=== PATIENT | female | born 1940 | race Caucasian/White ===

== ENCOUNTER 2017-03-21 10:54 | Inpatient (IN) | payer MEDICARE, BC ==
[~2017-03-21] VITALS: Ht 157.5 cm; Wt 74.6 kg
--- NOTE | ~2017-03-21 | DS ---
Unit #: [id number] #: [id number] Patient: ARSLAN DOMINGUEZ [id number] [address] [place], [place] [address] [id number] I MR#: [id number] NAME: ARSLAN DOMINGUEZ. ROOM: [facility] Age: 76 Sex: F Admission Date: 03/21/2017 : 1940 Discharge Date: 03/26/2017 Attending Physician: Ervin Mancera M.D. Primary Care Physician: Gracie Taveras M.D. DISCHARGE SUMMARY DISCHARGE DIAGNOSES 1. Acute bronchitis. 2. Paroxysmal atrial fibrillation, now normal sinus rhythm. 3. Left ventricular ejection fraction 50%-55%. 4. Abnormal chest CT, status post bronchoscopy on 03/26/2017. 5. Nonsmoker. DISCHARGE MEDICATIONS 1. Doxycycline 100 mg p.o. times 5 days. 2. Xarelto 20 mg p.o. daily. Start tomorrow. 3. Alendronate sodium 7 mg once weekly. 4. Singulair 10 mg p.o. daily. 5. Lipitor 40 mg p.o. at bedtime 6. Cardizem 60 mg p.o. b.i.d. 7. Telmisartan/hydrochlorothiazide 80/25 mg 1 p.o. daily. 8. Combivent MDI q.6 h. 9. Symbicort 160/4.5 one puff b.i.d. 10. Prednisone 40 mg p.o. daily times 4 days. 11. Tylenol 650 mg p.o. q.6 h. p.r.n. mild pain. HOSPITAL COURSE The patient is a 76-year-old female with a history of hypertension, hyperlipidemia, chronic obstructive pulmonary disease and bronchiectasis, status post right lower lobectomy in the 1960s, and frequent pneumonia. She presented to the emergency room with weakness and cough and increased shortness of breath from her baseline. She reported productive cough for several days. In the emergency room she was found to be in atrial fibrillation with a ventricular rate in the 190s. She was given a Cardizem 20 mg IV bolus, which converted her to sinus rhythm with a rate of 70s to 80s. She denied chest pain, but did report some soreness from coughing. An EKG and enzymes were negative for ischemia. She was started on Lovenox and Cardizem p.o. CT of the chest was done, which was negative for pulmonary embolism, but did show wall thickening with irregularity of the right mainstem bronchus. Pulmonary was consulted. On 03/22/2017 she underwent a dobutamine stress test which was negative for ischemia. An echocardiogram showed left ventricular ejection fraction of 50%-55%. Her anticoagulation was held on 03/25/2017 in anticipation of a bronchoscopy. On 03/26/2017 she underwent a bronchoscopy for abnormal CT of the chest. Bronchoscopy showed mucus in the airways with some chronic bronchitis, but no endobronchial lesions. She post bronch was stable and maintained normal sinus rhythm. She is currently ready for discharge home. She will follow up with Dr. Mancera in four to six weeks and Dr. Berumen in two weeks. We will restart her Xarelto tomorrow. The patient was given a prescription for 30 days free of Xarelto. She was also given a Unit #: [id number] #: [id number] Patient: ARSLAN DOMINGUEZ prescription with refill for Xarelto. It is unclear the cost to the patient. This needs to be addressed at the patient's follow-up office visit in one month. This was discussed in detail with the patient. PHYSICAL EXAMINATION VITALS: Temperature 98.2, heart rate 68, respiratory rate 16, blood pressure 137/59. GENERAL: Alert and oriented times three. The patient is a 76-year-old female in no acute distress. CARDIOVASCULAR: S1 and S2. Regular rate and rhythm. PULMONARY: Lungs clear. Decreased in the bases. Unlabored respirations. ABDOMEN: Nontender and nondistended. Positive bowel sounds. EXTREMITIES: No edema. Pulses palpable. DIAGNOSTIC DATA LABORATORY: Sodium 139, potassium 4.2, chloride 107, BUN 43, creatinine 0.9, glucose 143, hemoglobin 10, hematocrit 30.9, white blood cell count 22, platelets 323, magnesium 2.3. TSH was 3.45. Blood cultures on 03/21/2017 were no growth after 5 days. Sputum culture was no growth after 24 hours. Urine culture was no growth after 48 hours. CARDIOVASCULAR: EKG normal sinus rhythm with ventricular rate of 68. DISPOSITION Discharge home. FOLLOWUP 1. Follow up with Dr. Mancera in four to six weeks. 2. Follow up with Dr. Berumen in two weeks. DISCHARGE INSTRUCTIONS 1. Resume Xarelto 20 mg daily starting tomorrow. 2. Resume home medications per medication reconciliation sheet. Prescriptions given as needed. Dictated by... Ophelia Hope APRN for Michelle Kemp M.D. PURVI/sacha TD: 03/29/2017 13:22 JOB #: [id number] DISCHARGE SUMMARY Page 1 of 1 X X DISCHARGE SUMMARY
--- NOTE | ~2017-03-21 | CR72 ---
[facility] A Service of [facility] & [facility] RADIOLOGY TEXT RESULTS PATIENT: ARSLAN DOMINGUEZ LOCATION: [facility] 550-01 : 41 UNIT #: [id number] AGE: [address]: Ervin Mancera MD SEX: F ORDER DR: [id number] [facility] [address] [facility]. [place], [place] [address] [id number] I MR#: [id number] Acc #: [id number] NAME: ARSLAN DOMINGUEZ. : 1940 SEX: F STUDY DATE/TIME: 03/21/2017 1129 UNIT: [facility] ROOM: [facility] STUDY DESCRIPTION: CR Chest Single View Portable Attending Physician: Ervin Mancera M.D. Ordering Physician: Reymundo Valentin M.D. Primary Care Physician: Gracie Taveras M.D. MEDICAL IMAGING REPORT This report is preliminary unless electronic signature is present EXAM Chest portable 03/21/2017 1129 hours HISTORY 76-year-old woman with shortness of air, cough, hypertension, congestion and pneumonia today. COMPARISON None. FINDINGS Single upright portable chest demonstrates low lung volumes. Heart size is at the upper limits of normal with mildly tortuous aorta. The lung volumes are low but the pulmonary vascularity is normal. The lungs are clear. IMPRESSION Slightly low lung volumes with no acute pulmonary or pleural findings. Heart size at the upper limits of normal with mildly tortuous aorta. There is no pleural effusion or pneumothorax. Dictated by... Samantha Quinones M.D. THIS IS AN ELECTRONICALLY VERIFIED REPORT Samantha Quinones M.D. at 03/22/2017 8:53 AM Mei TD: 03/21/2017 17:58 JOB #: [id number] MEDICAL IMAGING REPORT Page 1 of 1 COPY
--- NOTE | ~2017-03-21 | CR63 ---
[facility] A Service of [facility] & [facility] RADIOLOGY TEXT RESULTS PATIENT: ARSLAN DOMINGUEZ LOCATION: [facility] 550-01 : 41 UNIT #: [id number] AGE: [address]: Ervin Mancera MD SEX: F ORDER DR: [id number] [facility] [address] [facility]. [place], [place] [address] [id number] I MR#: [id number] #: [id number] NAME: ARSLAN DOMINGUEZ. : 1940 SEX: F STUDY DATE/TIME: 03/21/2017 15:43 UNIT: [facility] ROOM: [facility] STUDY DESCRIPTION: CR Chest 2 View Attending Physician: Ervin Mancera M.D. Ordering Physician: Ervin Mancera M.D. Primary Care Physician: Gracie Taveras M.D. MEDICAL IMAGING REPORT This report is preliminary unless electronic signature is present EXAM PA and lateral chest radiograph INDICATIONS Chest pain, cough and congestion starting 2 days ago. FINDINGS Comparison is made to prior exam from earlier today. Heart size is within normal limits. Exam is degraded by an overlying defibrillator pad overlying the right hemithorax. Patient has volume loss within the right hemithorax with some blunting of the right costophrenic angle. I do think there is some left basilar atelectasis. No pneumothorax or pleural effusion is seen on the left. IMPRESSION Volume loss within the right hemithorax with blunting of the right costophrenic angle; in the chronic setting, this could reflect scarring, in the acute setting, it may reflect a small effusion. Patient is also noted to have some left basilar atelectasis. Overall lung volumes are diminished. Dictated by... Symone Franz M.D. THIS IS AN ELECTRONICALLY VERIFIED REPORT Symone Franz M.D. at 03/22/2017 7:22 AM AFF/psc TD: 03/21/2017 23:24 JOB #: [id number] MEDICAL IMAGING REPORT [facility] A Service of [facility] & [facility] RADIOLOGY TEXT RESULTS PATIENT: ARSLAN DOMINGUEZ LOCATION: [place] [address] : 41 UNIT #: [id number] AGE: [address]: Ervin Mancera MD SEX: F ORDER DR: Page 1 of 1 COPY
--- NOTE | ~2017-03-21 | CT16 ---
[facility] A Service of [facility] & [facility] RADIOLOGY TEXT RESULTS PATIENT: ARSLAN DOMINGUEZ LOCATION: [facility] 550-01 : 41 UNIT #: [id number] AGE: [address]: Ervin Mancera MD SEX: F ORDER DR: [id number] [facility] [address] [facility]. [place], [place] [address] [id number] I MR#: [id number] #: [id number] NAME: ARSLAN DOMINGUEZ : 1940 SEX: F STUDY DATE/TIME: 03/22/2017 16:05 UNIT: [facility] ROOM: [facility] STUDY DESCRIPTION: CT Angio Chest for PE Attending Physician: Ervin Mancera M.D. Ordering Physician: Rachid Berumen M.D. Primary Care Physician: Gracie Taveras M.D. MEDICAL IMAGING REPORT This report is preliminary unless electronic signature is present EXAM CT angiogram of the chest INDICATIONS Shortness of breath starting today. TECHNIQUE Axial CT images were obtained from the thoracic inlet through the dome of the diaphragm following administration of intravenous contrast material following this 3-D reformatted images were obtained. This CT exam was performed with one or more of the following radiation dose reduction techniques: automatic control, adjustment of mA and/or kV according to patient size, and iterative reconstruction. FINDINGS This patient has a wall thickening and irregularity involving the right mainstem bronchus. This also involves the bronchus intermedius which appears briefly occluded and additional debris is seen within the bronchi to the right middle lobe and right lower lobe with associated consolidation noted at the right lung base. There is also severe narrowing of the patient's pulmonary arterial branch to the right lower lobe. Given background emphysematous changes the possibility that this reflects malignant disease cannot be excluded. Further evaluation with bronchoscopy is recommended however no acute pulmonary thromboembolus is seen. Mediastinal lymph nodes do not appear pathologically enlarged there is actually a prominent left hilar node measuring 1.4 x 0.9 cm, the patient has a moderate hiatal hernia and there is scarring versus atelectasis noted at the left lung base. The thyroid gland appears unremarkable. There are coronary artery calcifications. There is no pleural or pericardial effusion. Images through the upper abdomen demonstrate bilateral parapelvic cysts, patient is also noted to have significant atherosclerotic involvement of the visualized portions of the abdominal aorta. This does result in narrowing at the origins of the STS. [facility] A Service of [facility] & [facility] RADIOLOGY TEXT RESULTS PATIENT: ARSLAN DOMINGUEZ LOCATION: [facility] [address] : 41 UNIT #: [id number] AGE: [address]: Ervin Mancera MD SEX: F ORDER DR: celiac axis and superior mesenteric artery. Review of bony windows demonstrates compression deformity at T7 and T6 age-indeterminate. IMPRESSION 1. This patient has wall thickening and irregularity of the right mainstem bronchus which extends into the bronchus intermedius which is briefly occluded. Additional debris is identified within the bronchi to the right lower lobe and right middle lobe. Possibility that this reflects malignant involvement cannot be excluded, given background emphysematous changes. Further evaluation with bronchoscopy is recommended. Patient is also noted to have severe attenuation of the pulmonary arterial branches of the right lower lobe, within this area again, mass lesion cannot be excluded. 2. Mildly prominent left hilar node may be reactive but again patient does have suspicious findings within the right lung, and I would suggest short-term CT followup in 3 months. 3. Moderate hiatal hernia. 4. Compression deformity at T6 and T7 age indeterminate. Correlation with history of point tenderness is recommended. Bone scan or MRI could be considered for full assessment of acuity. 5. No acute pulmonary thromboembolus seen Dictated by... Symone Franz M.D. THIS IS AN ELECTRONICALLY VERIFIED REPORT Symone Franz M.D. at 03/24/2017 1:09 PM AFF/rnr TD: 03/22/2017 22:56 JOB #: [id number] MEDICAL IMAGING REPORT Page 1 of 1 COPY
--- NOTE | ~2017-03-21 | ST ---
Unit #: [id number] #: [id number] Patient: ARSLAN DOMINGUEZ [id number] [address] [place], [place] [address] [id number] I MR#: [id number] NAME: ARSLAN DOMINGUEZ. : 1940 SEX: F STUDY DATE/TIME: 03/22/2017 UNIT: [id number] ROOM: 550 STUDY DESCRIPTION: Stress nuclear and ECG comb. Attending Physician: Ervin Mancera M.D. Primary Care Physician: Gracie Taveras M.D. CARDIOLOGY REPORT EXAM Stress nuclear and ECG combined. INDICATION Dyspnea, bronchiectasis, paroxysmal atrial fibrillation new onset. SUMMARY The patient was given dobutamine intravenously while at rest. Dobutamine was used because of the patient's COPD, and baseline wheezing. The heart rate increased from 72 up to 130 (93%), and blood pressure decreased from 125/65 to 84/53. Patient did not develop any chest pain, and no atrial fibrillation was noted. There rest and stress ECG showed no diagnostic ST shifts, no dysrhythmias and no heart block. Technetium 99 Cardiolite 11.08 and 31.5 mCi was injected at rest and stress respectively. Appropriate views were obtained. FINDINGS The heart is small. There is normal perfusion both at rest and stress. There is apical thinning at rest, more than at stress. There is intestinal artifact seen more at rest. Planar images demonstrate mild motion both at rest and stress, not severe or significant. There is no increased LV size, RV size, or lung uptake. Summed stress scores is 4, summed difference scores is 3. Changes involve primarily border detection at the base. Gated perfusion wall motion analysis demonstrate normal wall motion throughout the myocardium with end-diastolic volume 52 mL, ejection fraction greater than 65%. IMPRESSION 1. Myocardial perfusion scan shows no ischemia or infarction. 2. Normal wall motion with excellent ejection fraction. 3. Patient will be discharge home. 4. Patient will be started on anticoagulation for the atrial fibrillation because she did not feel when it was present. 5. Patient notes that she awakens frequently during the night. Sleep evaluation will be secured as an outpatient, before the patient is discharged. Dictated by... Ervin Mancera M.D. PJR/ts Unit #: [id number] #: [id number] Patient: ARSLAN DOMINGUEZ TD: 03/23/2017 13:47 JOB #: [id number] CARDIOLOGY REPORT Page 1 of 1 X Ervin Mancera MD CARDIOLOGY REPORT
--- NOTE | ~2017-03-21 | HP ---
Unit #: [id number] #: [id number] Patient: ARSLAN DOMINGUEZ [id number] [address] [place], [place] [address] [id number] I MR#: [id number] NAME: ARSLAN DOMINGUEZ. ROOM: [facility] Age: 76 Sex: F Admission Date: 03/21/2017 : 1940 Attending Physician: Ervin Mancera M.D. Primary Care Physician: Gracie Taveras M.D. HISTORY AND PHYSICAL CHIEF COMPLAINT Dyspnea with cough and atrial fibrillation. 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 She denies ever having a cardiac catheterization, myocardial infarction, or 2D echocardiogram. The patient endorses that she has a past medical history of hypertension, hyperlipidemia, bronchiectasis, COPD, and has had multiple bouts of pneumonia in the past. She typically follows with Dr. Gracie Taveras. The patient states that on Saturday that she started feeling "not well." She described not well as having a cough and some generalized weakness. She felt slightly more short of breath in her baseline. She did call Dr. Taveras office and was prescribed a decongestant. Today the patient reports that her cough became much worse this morning. She reports it is a productive cream color and that she is having chest pain when she coughs. The pain does not radiate to her arm, neck, back or jaw. She rates the pain a 6 out of 10. Upon admission to the emergency department, the patient was found to be in atrial fibrillation with rapid ventricular rate with a rate in the 190s. Her point of care troponin was negative. She was treated with a bolus of 20 of IV Cardizem and subsequently converted back into sinus rhythm with a rate in the 70s to 80s. The patient's blood pressure is currently 90s to 100s/50s. She denies any chest pain. She does complain of some chest soreness when she coughs. Patient has been admitted for further workup. PAST MEDICAL HISTORY 1. Bronchiectasis. 2. Hypertension. 3. Hyperlipidemia. 4. COPD/asthma. PAST SURGICAL HISTORY Right lower lobe lobectomy at the age of 24, secondary to bronchiectasis. ALLERGIES Penicillin, erythromycin and Phenergan. HOME MEDICATIONS Combivent; Respimat one puffs inhalation 4 times daily; Singulair 10 mg p.o. daily; telmisartan/HCTZ 80/25 one tab p.o. daily; Norvasc 5 mg p.o. daily; alendronate sodium 70 mg p.o. on Saturday; Trilipix 135 mg p.o. Unit #: [id number] #: [id number] Patient: ARSLAN DOMINGUEZ daily; Plavix 75 mg p.o. daily; Klor-Con 20 mEq p.o. daily; Lipitor 20 mg p.o. daily; Symbicort 150/4.5 mcg one puff inhalation b.i.d. FAMILY HISTORY Patient endorses that her mother of a heart attack in her 60s. SOCIAL HISTORY The patient denies any tobacco, alcohol, or illicit drug abuse. She lives alone. She does have two children who are and do not live with her. She is . REVIEW OF SYSTEMS A ten point review of systems has been done and considered otherwise negative except as indicated in the HPI. PHYSICAL EXAMINATION GENERAL: The patient is awake and alert in no acute distress. VITAL SIGNS: Temperature 98.8, heart rate 79, respirations 20, blood pressure 92/47. She is oxygenating 99% on 2 L nasal cannula. HEENT: Head is atraumatic and normocephalic. Pupils equal, round, reactive to light and accommodation. Extraocular movements intact. No drainage from ears or nares. NECK: Neck is supple. Trachea is midline. Normal carotid upstrokes. No thyromegaly or lymphadenopathy is appreciated. CHEST: Diminished with some scattered rhonchi. CARDIOVASCULAR: S1 and S2. Regular rate and rhythm. No murmurs, rubs or gallops appreciated. ABDOMEN: Soft, nontender, distended. Bowel sounds are positive in all four quadrants. SKIN: Appears to be warm, dry and intact without any unusual rashes or lesions. EXTREMITIES: No clubbing, edema or cyanosis. NEUROLOGIC: Patient is alert and oriented x4. She is pleasant and conversant. No focal deficits. DIAGNOSTIC STUDIES LABORATORY RESULTS: White blood cells 13.6, hemoglobin 11.5, hematocrit 36.8, platelets 345. Sodium 138, potassium 3.5, chloride 105, CO2 25, BUN 27, creatinine 0.9, glucose 125, BNP 104. CARDIOLOGY STUDIES: EKG shows a sinus rhythm with a rapid ventricular rate of 56. Currently telemetry monitoring shows sinus rhythm with rates in the 70s to 80s. ASSESSMENT 1. Chest pain. 2. New onset atrial fibrillation with RVR, now sinus rhythm with CHADS-VASc score of 4. 3. Hypertension. 4. Hyperlipidemia. 5. Dyspnea with cough. 6. Bronchiectasis with history of right lower lobectomy. 7. COPD. 8. Nonsmoker. PLAN AT THIS TIME Will trend cardiac enzymes q.6 hours x3 and check an EKG now and in the morning. Will attempt to obtain the H and P and last office note from Unit #: [id number] #: [id number] Patient: ARSLAN DOMINGUEZ Taveras office regarding as to why the patient is on Plavix. When I interrogated the patient, she was unsure. Care management to follow and had PT and OT see in the morning. The patient will be started on a healthy heart diet and be NPO after midnight where she will have a dobutamine Cardiolite stress test in the a.m. Dr. Hodges with pulmonary will be consulted for congestion and bronchiectasis. The patient will be started on Lovenox 1 mg/kg subcu b.i.d. and diltiazem 30 mg p.o. 4 times daily with her first dose now. Will send urinalysis, urine culture and a sputum culture. A chest x-ray, PA and lateral will be obtained. Will check a TSH now and obtain the 2D echocardiogram. Further recommendations will be for Dr. Mancera. Dictated by Alison Connor A.P.R.N. for Ervin Mancera M.D. 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
--- NOTE | ~2017-03-21 | OR ---
Unit #: [id number] #: [id number] Patient: ARSLAN DOMINGUEZ [id number] [address] [place], [place] [address] [id number] I MR#: [id number] NAME: ARSLAN DOMINGUEZ ROOM: [facility] Date of Procedure: 03/26/2017 Admission Date: 03/21/2017 Surgeon: Rachid Berumen M.D. : 1940 Attending Physician: Ervin Mancera M.D. Primary Care Physician: Gracie Taveras M.D. OPERATIVE REPORT PROCEDURE PERFORMED Flexible fiberoptic bronchoscopy. INDICATION FOR PROCEDURE Abnormal CAT scan. FINDINGS Mucus plugs were encountered and removed. She also had significant postoperative changes particularly on the right. This area was photographed. SEDATION MAC. COMPLICATIONS Zero. CONDITION AFTER PROCEDURE Stable to recovery room. DESCRIPTION OF PROCEDURE The patient was brought to the endoscopy suite and monitored for heart rate, blood pressure, saturations. Sedated by MAC. Please see their notes for details. She was anesthetized with 2% lidocaine in both nares. Viscous lidocaine was applied to her right naris. Bronchoscope was introduced without difficulty. Vocal cords were visualized. There were normal configuration and motion, anesthetized x2. Main trachea was intubated. Main airways were anesthetized. Some mucus was almost immediately encountered and removed. Left-sided airways showed evidence of some chronic bronchitis, but no endobronchial lesions were seen. She did have easy bleeding just with the scope touching her bronchial mucosa, but again no tumor identified. This was likely secondary to her previous blood thinners and Plavix. Right-sided airways revealed a lot of anatomic distortion related to her previous surgery in the past. No endobronchial lesions were seen. Washings were performed. The bronchoscope was removed without difficulty, and the patient was in stable condition postprocedure. Dictated by... Rachid Berumen M.D. Unit #: [id number] #: [id number] Patient: ARSLAN DOMINGUEZ WOL/modl TD: 03/26/2017 17:23 JOB #: [id number] OPERATIVE REPORT Page 1 of 1 X Rachid Berumen MD PROCEDURE OPERATIVE NOTE
--- NOTE | ~2017-03-21 | EKG ---
PATIENT: ARSLAN DOMINGUEZ UNIT #: [id number] Ventricular Rate: 72 BPM Atrial Rate: 72 BPM P-R Interval: 136 ms QRS Duration: 82 ms Q-T Interval: 366 ms QTC Calculation(Bezet): 400 ms P [place]: 43 degrees Calculated R [place]: 35 degrees Calculated T [place]: 30 degrees Diagnosis Line: Normal sinus rhythm with sinus arrhythmia Diagnosis Line: Normal ECG Diagnosis Line: When compared with ECG of 21-MAR-2017 11:06, Diagnosis Line: (unconfirmed) Diagnosis Line: Sinus rhythm has replaced Atrial fibrillation Diagnosis Line: Vent. rate has decreased BY 84 BPM Diagnosis Line: ST no longer depressed in Anterior leads Diagnosis Line: Nonspecific T wave abnormality, improved in Diagnosis Line: Inferior leads Diagnosis Line: Nonspecific T wave abnormality no longer evident Diagnosis Line: in Lateral leads Diagnosis Line: Confirmed by ANNIKA GONZALEZ MD ([id number]) on Diagnosis Line: 03/22/2017 7:33:03 AM INTERPRETING MD: CARLOS OVALLES
--- NOTE | ~2017-03-21 | CO ---
Unit #: [id number] #: [id number] Patient: ARSLAN DOMINGUEZ [id number] [address] [place], [place] [address] [id number] MR#: [id number] NAME: ARSLAN DOMINGUEZ. ROOM: [facility] Age: 76 Sex: F Admission Date: 03/21/2017 : 1940 Attending Physician: Ervin Mancera M.D. Primary Care Physician: Gracie Taveras M.D. Consultation Date: 03/22/2017 CONSULTATION REPORT REASON FOR CONSULTATION Bronchiectasis, shortness of breath, possible sleep apnea. HISTORY OF PRESENT ILLNESS A 76-year-old female with a known history of bronchiectasis undergoing remote right lower lobectomy for bronchiectasis in the 60s. She has had intermittent bouts of pneumonia and bronchitis. She currently is on Symbicort and nebulized bronchodilators. She had increasing chest congestion, wheezing, and green sputum. She presented to the emergency room, where she was found to have atrial fibrillation with rapid ventricular response. She was treated with Cardizem. Cardiology evaluated the patient and checked an echocardiogram and she has undergone stress testing. Both of those tests had pending reports. PAST MEDICAL HISTORY Remarkable for bronchiectasis, history of hypertension, hyperlipidemia, COPD/asthma. MEDICATIONS At home, she is on Combivent q.i.d., Singulair, Symbicort b.i.d., Norvasc, Fosamax, Trilipix, Plavix, potassium, Lipitor, and telmisartan and hydrochlorothiazide. ALLERGIES Penicillin, erythromycin, and Phenergan, unknown reactions. FAMILY HISTORY No definite familial lung disease. SOCIAL HISTORY She is a never smoker. She was around minimal secondhand smoke. REVIEW OF SYSTEMS No real chest pain or palpitations. No fever, weight loss, abdominal pain, melena, hematochezia, hematuria, dysuria, focal weakness, paresthesias, leg pain, swelling. Further review of systems as above and/or negative. PHYSICAL EXAMINATION GENERAL: Reveals a patient, who is in no acute distress. She has audible wheezing. VITAL SIGNS: She is afebrile, pulse is 80, respiratory rate is 18, blood pressure is 125/45, 5 feet 2 inch, 167 pounds, BMI of 27. HEENT: Pupils are equal, round, and reactive to light. Sclerae Unit #: [id number] #: [id number] Patient: ARSLAN DOMINGUEZ anicteric. Head, atraumatic. NECK: Supple. No supraclavicular or cervical adenopathy appreciated. She has very good dentition. CHEST: Expiratory wheeze, cough. No consolidation. No stridor. CARDIAC: Reveals a regular rate and rhythm. No pathologic murmur, rub, or gallop. ABDOMEN: Soft and nontender. No hepatomegaly or rebound. EXTREMITIES: Reveal no clubbing, cyanosis, or edema. Calves are nontender. SKIN: Warm and dry without rash or diaphoresis. DIAGNOSTIC STUDIES IMAGING STUDIES: She had a chest x-ray that unfortunately has defibrillator pads particularly over her right lower lobe. Lateral view reveals abnormalities, possible pneumonia, possible postoperative changes. LABORATORY RESULTS: Her BUN is 23, creatinine is 0.8. BNP is 104. INR, normal. Cardiac enzymes, normal. White blood cell count 13.6, hemoglobin 11.5, platelet count 345. Urinalysis; hematuria. Blood cultures performed and are pending. Urine cultures performed and are pending. CARDIOVASCULAR STUDIES: EKG now has sinus rhythm. IMPRESSION 1. Bronchiectasis, chronic obstructive pulmonary disease with exacerbation, possible obstructive sleep apnea, Dr. Mancera wants evaluation. 2. Abnormal chest x-ray. 3. History of bronchiectasis, status post remote right lower lobectomy. 4. Atrial fibrillation, now normal sinus rhythm. 5. Medical problems listed above. PLAN Given her shortness of breath and new diagnosis of AFib, we will check a CT angiogram. This will also give us a better idea if she has pneumonia or not. In the meantime, we will check sputum, follow up cultures already obtained and begin antibiotics. Continue inhaled corticosteroids and long-acting beta agonist, but given her bronchospasm, we will add systemic IV steroids. Ultimately, she would benefit from outpatient PFTs. We will gather information including her cardiac testing. Consider outpatient nocturnal polysomnography. Thank you very much for allowing me to participate in the care of Ms. Dominguez. Dictated by... Rachid Berumen M.D. RALEIGH/hector TD: 03/23/2017 05:30 JOB #: [id number] Unit #: [id number] #: [id number] Patient: ARSLAN DOMINGUEZ CONSULTATION REPORT Page 1 of 1 X Rachid Berumen MD CONSULTATION REPORT
--- NOTE | ~2017-03-21 | EKG ---
PATIENT: ARSLAN DOMINGUEZ UNIT #: [id number] Ventricular Rate: 75 BPM Atrial Rate: 75 BPM P-R Interval: 128 ms QRS Duration: 86 ms Q-T Interval: 384 ms QTC Calculation(Bezet): 428 ms P Vidal: 50 degrees Calculated R Vidal: 39 degrees Calculated T Vidal: 15 degrees Diagnosis Line: Normal sinus rhythm Diagnosis Line: Normal ECG Diagnosis Line: No previous ECGs available Diagnosis Line: Confirmed by ANNIKA GONZALEZ MD ([id number]) on Diagnosis Line: 03/22/2017 7:34:42 AM INTERPRETING MD: CARLOS OVALLES
--- NOTE | ~2017-03-21 | EKG ---
PATIENT: ARSLAN DOMINGUEZ UNIT #: [id number] Ventricular Rate: 156 BPM Atrial Rate: 136 BPM QRS Duration: 80 ms Q-T Interval: 302 ms QTC Calculation(Bezet): 486 ms Calculated R [place]: 44 degrees Calculated T [place]: 53 degrees Diagnosis Line: Atrial fibrillation with rapid ventricular Diagnosis Line: response Diagnosis Line: Nonspecific ST and T wave abnormality Diagnosis Line: Abnormal ECG Diagnosis Line: No previous ECGs available Diagnosis Line: Confirmed by ANNIKA GONZALEZ MD ([id number]) on Diagnosis Line: 03/22/2017 7:32:34 AM INTERPRETING MD: CARLOS OVALLES
[2017-03-21] MEDS ORDERED: PATIENT'S PHARMACY (11:27)
[2017-03-21] MEDS ORDERED: SINGULAIR PO (11:28)
[2017-03-21] MEDS ORDERED: TELMISARTAN-HC1 EAC1 PO (11:28)
[2017-03-21] MEDS ORDERED: COMBIVENT RESPIM4 GM INH (11:28)
[2017-03-21] MEDS ORDERED: ALENDRONATE SOD70 M1 PO (11:28)
[2017-03-21] MEDS ORDERED: NORVASC PO (11:28)
[2017-03-21] MEDS ORDERED: TRILIPIX135 MG PO (11:29)
[2017-03-21] MEDS ORDERED: KCL PO (11:29)
[2017-03-21] MEDS ORDERED: LIPITOR20 MG PO (11:29)
[2017-03-21] MEDS ORDERED: CLOPIDOGREL75 MG PO (11:29)
[2017-03-21] MEDS ORDERED: SYMBICORT INH (11:30)
[2017-03-21 11:38] LABS: POC - CKMB <1.0 ng/mL (0.0-7.9); POC - TROPONIN <0.05 ng/mL (<=0.05)
[2017-03-21 11:52] LABS: BASOPHIL% 0.3 % (0-2.5); EOSINOPHIL# 0.1 X10e3 (0-0.7); EOSINOPHIL% 0.9 % (0.0-7.0); HEMATOCRIT 36.8 % (35.0-45.0); HEMOGLOBIN 11.5 gm/dL (12.0-16.0); LYMPHOCYTE# 1.5 X10e3 (1.0-3.5); LYMPHOCYTE% 11.2 % (17.0-45.0); MEAN CELL VOLUME 83.8 FL (83-96); MEAN CORPUSCULAR HEMOGLOBIN 26.3 PG (28-34); MEAN CORPUSCULAR HGB CONC 31.4 g/dL (30-36); MEAN PLATELET VOLUME 8.1 FL (6.5-11.5); MONOCYTE# 1.8 X10e3 (0-1.0); MONOCYTE% 13.5 % (3.0-12.0); NEUTROPHIL# 10.1 X10e3 (1.5-7.1); NEUTROPHIL% 74.1 % (40-75); PLATELET COUNT 345 X10e3 (140-420); RED BLOOD COUNT 4.39 X10e (3.90-5.30); RED CELL DISTRIBUTION WIDTH 17.9 % (11.0-15.5); WHITE BLOOD COUNT 13.6 X10e3 (4.0-10.5)
[2017-03-21 11:54] LABS: DIFF IND NO
[2017-03-21 12:11] LABS: ALBUMIN SERUM 3.7 g/dL (3.5-5.0); BILIRUBIN, DIRECT 0.2 mg/dL (0.0-0.2); BILIRUBIN,INDIRECT 0.9 mg/dL (0.0-0.9); BILIRUBIN,TOTAL 1.1 mg/dL (0.2-2.0); CALCIUM SERUM 9.6 mg/dL (8.4-10.2); CREATININE SERUM 0.9 mg/dL (0.6-1.4); GLOM FILT RATE Estimated 62.6 mL/min (>60); POTASSIUM 3.5 mmol/L (3.5-5.1)
[2017-03-21 16:20] LABS: URINE SOURCE CLEAN CATCH
[2017-03-21 16:34] LABS: URINE APPEARANCE CLEAR; URINE BILIRUBIN NEG (NEG); URINE BLOOD 1+ (NEG); URINE COLOR YELLOW; URINE GLUCOSE NEG (NEG); URINE KETONE NEG (NEG); URINE LEUKOCYTE ESTERASE 2+ (NEG); URINE NITRATE NEG (NEG); URINE PH 5.5 (5-8); URINE PROTEIN NEG (NEG); URINE SPECIFIC GRAVITY 1.018 (1.003-1.035); URINE UROBILINOGEN 0.2 MG/DL (NEG)
[2017-03-21 16:38] LABS: CULTURE INDICATED? YES; URBCS1 AUWI 0-2 /[HPF] (0-2); URINE BACTERIA AUWI NEG (NEGATIVE); URINE SQUAMOUS EPITHELIAL CELL OCC /[HPF]; UWBCS1 AUWI 25-50 (0-5)
[2017-03-21 18:34] LABS: %MB 2.7 % (0.0-4.0); MB 2.4 ng/ml
[2017-03-22 00:44] LABS: MB 2.5 ng/ml
[2017-03-22 06:58] LABS: %MB 3.6 % (0.0-4.0); BUN/CREATININE RATIO 28.75; CALCIUM SERUM 9.1 mg/dL (8.4-10.2); CREATININE SERUM 0.8 mg/dL (0.6-1.4); GLOM FILT RATE Estimated 72.2 mL/min (>60); MAGNESIUM 1.9 mg/dL (1.6-3.0); POTASSIUM 3.9 mmol/L (3.5-5.1)
[2017-03-23 07:38] LABS: BUN/CREATININE RATIO 31.42; CALCIUM SERUM 9.4 mg/dL (8.4-10.2); CREATININE SERUM 0.7 mg/dL (0.6-1.4); GLOM FILT RATE Estimated 84.8 mL/min (>60); MAGNESIUM 2.1 mg/dL (1.6-3.0); POTASSIUM 4.3 mmol/L (3.5-5.1)
[2017-03-24 05:46] LABS: BASOPHIL% 0.1 % (0-2.5); HEMATOCRIT 30.5 % (35.0-45.0); HEMOGLOBIN 9.6 gm/dL (12.0-16.0); LYMPHOCYTE# 0.8 X10e3 (1.0-3.5); LYMPHOCYTE% 4.4 % (17.0-45.0); MEAN CELL VOLUME 84.2 FL (83-96); MEAN CORPUSCULAR HEMOGLOBIN 26.5 PG (28-34); MEAN CORPUSCULAR HGB CONC 31.5 g/dL (30-36); MEAN PLATELET VOLUME 8.5 FL (6.5-11.5); MONOCYTE# 1.1 X10e3 (0-1.0); MONOCYTE% 5.9 % (3.0-12.0); NEUTROPHIL# 17.1 X10e3 (1.5-7.1); NEUTROPHIL% 89.6 % (40-75); PLATELET COUNT 297 X10e3 (140-420); RED BLOOD COUNT 3.62 X10e (3.90-5.30); WHITE BLOOD COUNT 19.1 X10e3 (4.0-10.5)
[2017-03-24 05:47] LABS: DIFF IND YES
[2017-03-24 06:11] LABS: CALCIUM SERUM 9.2 mg/dL (8.4-10.2); CREATININE SERUM 0.8 mg/dL (0.6-1.4); GLOM FILT RATE Estimated 72.2 mL/min (>60); POTASSIUM 4.3 mmol/L (3.5-5.1)
[2017-03-24 07:08] LABS: ANISOCYTOSIS SL; HYPOCHROMIA SL; PLATELET ESTIMATE NORMAL (NORMAL)
[2017-03-25 05:19] LABS: HEMATOCRIT 30.7 % (35.0-45.0); HEMOGLOBIN 9.8 gm/dL (12.0-16.0); MEAN CELL VOLUME 84.7 FL (83-96); MEAN CORPUSCULAR HEMOGLOBIN 27.1 PG (28-34); MEAN PLATELET VOLUME 8.2 FL (6.5-11.5); RED BLOOD COUNT 3.62 X10e (3.90-5.30); WHITE BLOOD COUNT 22.3 X10e3 (4.0-10.5)
[2017-03-25 06:06] LABS: CREATININE SERUM 0.9 mg/dL (0.6-1.4); GLOM FILT RATE Estimated 62.6 mL/min (>60); POTASSIUM 4.3 mmol/L (3.5-5.1)
[2017-03-26 06:05] LABS: HEMATOCRIT 30.9 % (35.0-45.0); MEAN CELL VOLUME 84.1 FL (83-96); MEAN CORPUSCULAR HEMOGLOBIN 27.3 PG (28-34); MEAN CORPUSCULAR HGB CONC 32.5 g/dL (30-36); RED BLOOD COUNT 3.68 X10e (3.90-5.30); RED CELL DISTRIBUTION WIDTH 17.9 % (11.0-15.5)
[2017-03-26 06:09] LABS: INR 1.1; PROTHROMBIN TIME (PATIENT) 11.8 SECONDS (10.0-11.7)
[2017-03-26 06:52] LABS: BUN/CREATININE RATIO 47.77; CALCIUM SERUM 8.9 mg/dL (8.4-10.2); CREATININE SERUM 0.9 mg/dL (0.6-1.4); GLOM FILT RATE Estimated 62.6 mL/min (>60); MAGNESIUM 2.3 mg/dL (1.6-3.0); POTASSIUM 4.2 mmol/L (3.5-5.1)
[2017-03-26] MEDS ORDERED: XARELTO20 MG PO (18:16)
[2017-03-26] MEDS ORDERED: CARDIZEM60 M1 PO (18:17)
[2017-03-26] MEDS ORDERED: DOXYCYCLINE HY100 M3 PO (18:19)
[2017-03-26] MEDS ORDERED: PREDNISONE PO (18:20)
[2017-03-26] MEDS ORDERED: SYMBICORT INH (18:21)
== END 2017-03-26 19:50 | disposition home or self-care (01) | DRG 168 ==
LOC: CED 10:54 → CEDOF 13:20 → C5B 13:20 → CED 15:25 → CEDOF 15:25 → C5B 17:36
PROVIDERS: Emergency Medicine; Internal Medicine; Internal Medicine Cardiovascular Disease
PROC: B24BZZZ Ultrasonography of Heart with Aorta (ICD-10-PCS; 2017-03-22)
PROC: 0B9K8ZX Drainage of Right Lung, Via Natural or Artificial Opening Endoscopic, Diagnostic (ICD-10-PCS; principal; 2017-03-26 14:30)
DX: J47.9 Bronchiectasis, uncomplicated (principal); I48.91 Unspecified atrial fibrillation; J20.9 Acute bronchitis, unspecified; R07.89 Other chest pain; I10 Essential (primary) hypertension; E78.5 Hyperlipidemia, unspecified; Z90.2 Acquired absence of lung [part of]; Z87.01 Personal history of pneumonia (recurrent); Z88.0 Allergy status to penicillin; Z88.1 Allergy status to other antibiotic agents; Z88.8 Allergy status to other drugs, medicaments and biological substances
CPT/HCPCS: 71010; 71020; 71275; 78452; 80048; 80061; 80076; 81003; 82308; 82550; 82553; 82947; 83605; 83735; 83880; 84443; 84484; 85025; 85027; 85610; 87040; 87070; 87086; 87102; 87116; 87205; 87206; 88108; 88305; 93005; 93017; 93306; 94640; 94760; 96361; 96374; 97110; 97116; 97161; 97166; 99291; A9500; G8978-GP; G8979-GP; G8987-GO; G8988-GO; G8989-GO; G8990-GP; G8991-GP; J0153; J0171; J0692; J1250; J1650; J2920; Q9967

== ENCOUNTER 2017-03-28 21:07 | Emergency (ER) | payer MEDICARE, BC ==
[~2017-03-28] VITALS: Ht 157.5 cm; Wt 68.0 kg
--- NOTE | ~2017-03-28 | EKG ---
PATIENT: ARSLAN DOMINGUEZ UNIT #: [id number] Ventricular Rate: 66 BPM Atrial Rate: 66 BPM P-R Interval: 112 ms QRS Duration: 84 ms Q-T Interval: 426 ms QTC Calculation(Bezet): 446 ms P [place]: 43 degrees Calculated R [place]: 36 degrees Calculated T [place]: 41 degrees Diagnosis Line: Normal sinus rhythm Diagnosis Line: Normal ECG Diagnosis Line: When compared with ECG of 22-MAR-2017 05:29, Diagnosis Line: No significant change was found Diagnosis Line: Confirmed by ANNIKA GONZALEZ MD ([id number]) on Diagnosis Line: 03/29/2017 7:32:54 AM INTERPRETING MD: CARLOS OVALLES
--- NOTE | ~2017-03-28 | CR72 ---
[facility] A Service of [facility] & [facility] RADIOLOGY TEXT RESULTS PATIENT: ARSLAN DOMINGUEZ LOCATION: [facility] : 41 UNIT #: [id number] AGE: [address]: Mat Moore MD SEX: F ORDER DR: [id number] [facility] [address] [place], [place] [address] [id number] E MR#: [id number] #: [id number] NAME: ARSLAN DOMINGUEZ : 1940 SEX: F STUDY DATE/TIME: 03/28/2017 22:44 UNIT: [facility] ROOM: STUDY DESCRIPTION: CR Chest Single View Portable Attending Physician: Mat Moore M.D. Ordering Physician: Mat Moore M.D. Primary Care Physician: Gracie Taveras M.D. MEDICAL IMAGING REPORT This report is preliminary unless electronic signature is present EXAM Portable chest, 03/28/17 at 22:44 hours INDICATIONS Bilateral lower extremity edema. Shortness of air. Symptoms started today. FINDINGS AP portable chest is compared with 03/28/17. Cardiomegaly is stable. There is a hiatal hernia. There is some atelectasis in both bases. There is a small right pleural effusion which is relatively stable from the prior study. No pneumothorax. IMPRESSION Stable cardiomegaly. Small right pleural effusion which is not significantly changed. Hiatal hernia is present. Dictated by... Ricardo Bateman Jr., M.D. THIS IS AN ELECTRONICALLY VERIFIED REPORT Ricardo Bateman Jr., M.D. at 03/29/2017 6:53 AM MELANIE/hortencia TD: 03/28/2017 23:03 JOB #: [id number] MEDICAL IMAGING REPORT Page 1 of 1 COPY
[~2017-03-28 21:07] MED LIST: ALENDRONATE SOD70 M1 PO; CARDIZEM60 M1 PO; CLOPIDOGREL75 MG PO; COMBIVENT RESPIM4 GM INH; DOXYCYCLINE HY100 M3 PO; KCL PO; LIPITOR20 MG PO; NORVASC PO; PATIENT'S PHARMACY; PREDNISONE PO; SINGULAIR PO; SYMBICORT INH; TELMISARTAN-HC1 EAC1 PO; TRILIPIX135 MG PO; XARELTO20 MG PO
[2017-03-28 22:41] LABS: URINE SOURCE CLEAN CATCH
[2017-03-28 22:45] LABS: URINE APPEARANCE CLEAR; URINE BILIRUBIN NEG (NEG); URINE BLOOD NEG (NEG); URINE COLOR YELLOW; URINE GLUCOSE 100 MG/DL (NEG); URINE KETONE NEG (NEG); URINE LEUKOCYTE ESTERASE NEG (NEG); URINE NITRATE NEG (NEG); URINE PROTEIN NEG (NEG); URINE SPECIFIC GRAVITY 1.027 (1.003-1.035)
[2017-03-28 22:46] LABS: BASOPHIL% 0.2 % (0-2.5); HEMATOCRIT 34.1 % (35.0-45.0); LYMPHOCYTE# 1.2 X10e3 (1.0-3.5); LYMPHOCYTE% 5.8 % (17.0-45.0); MEAN CELL VOLUME 83.7 FL (83-96); MEAN CORPUSCULAR HEMOGLOBIN 26.9 PG (28-34); MEAN CORPUSCULAR HGB CONC 32.2 g/dL (30-36); MONOCYTE% 10.1 % (3.0-12.0); NEUTROPHIL# 17.1 X10e3 (1.5-7.1); NEUTROPHIL% 83.9 % (40-75); PLATELET COUNT 362 X10e3 (140-420); RED BLOOD COUNT 4.08 X10e (3.90-5.30); RED CELL DISTRIBUTION WIDTH 18.1 % (11.0-15.5); WHITE BLOOD COUNT 20.4 X10e3 (4.0-10.5)
[2017-03-28 22:47] LABS: DIFF IND YES
[2017-03-28 22:48] LABS: CULTURE INDICATED? NO
[2017-03-28 22:54] LABS: POC - CKMB 2.2 ng/mL (0.0-7.9); POC - TROPONIN <0.05 ng/mL (<=0.05)
[2017-03-28 23:17] LABS: ANISOCYTOSIS MOD; PLATELET ESTIMATE NORMAL (NORMAL)
[2017-03-28 23:19] LABS: ACANTHOCYTES PRESENT; HYPOCHROMIA SL; OVALOCYTES PRESENT
[2017-03-28 23:37] LABS: ALBUMIN SERUM 3.6 g/dL (3.5-5.0); BILIRUBIN, DIRECT 0.1 mg/dL (0.0-0.2); BILIRUBIN,INDIRECT 0.5 mg/dL (0.0-0.9); BILIRUBIN,TOTAL 0.6 mg/dL (0.2-2.0); BUN/CREATININE RATIO 51.25; CALCIUM SERUM 9.1 mg/dL (8.4-10.2); CREATININE SERUM 0.8 mg/dL (0.6-1.4); GLOM FILT RATE Estimated 72.2 mL/min (>60); POTASSIUM 3.9 mmol/L (3.5-5.1); PROTEIN TOTAL SERUM 6.4 g/dL (6.0-8.3)
== END 2017-03-29 00:25 | disposition home or self-care (01) ==
LOC: CED 21:07
PROVIDERS: Emergency Medicine
DX: R60.0 Localized edema (principal); E78.5 Hyperlipidemia, unspecified; I10 Essential (primary) hypertension; J45.909 Unspecified asthma, uncomplicated; Z79.899 Other long term (current) drug therapy; Z88.0 Allergy status to penicillin; Z88.1 Allergy status to other antibiotic agents
CPT/HCPCS: 36415; 71010; 80048; 80076; 81003; 82553; 83880; 84484; 85025; 93005; 99284

== ENCOUNTER 2017-03-30 17:21 | Emergency (ER) | payer MEDICARE, BC ==
[~2017-03-30] VITALS: Ht 157.5 cm; Wt 68.0 kg
--- NOTE | ~2017-03-30 | CR72 ---
[facility] A Service of [facility] RADIOLOGY TEXT RESULTS PATIENT: ARSLAN DOMINGUEZ LOCATION: [facility] : 42 UNIT #: [id number] AGE: [address]: Myrtle Baumann MD SEX: F ORDER DR: [id number] [facility] [address] [place], [place] [address] [id number] E MR#: [id number] Acc #: [id number] NAME: ARSLAN DOMINGUEZ. : 1940 SEX: F STUDY DATE/TIME: 03/30/2017 18:42 UNIT: [facility] ROOM: STUDY DESCRIPTION: CR Chest Single View Portable Attending Physician: Myrtle Baumann M.D. Ordering Physician: Myrtle aBumann M.D. Primary Care Physician: Gracie Taveras M.D. MEDICAL IMAGING REPORT This report is preliminary unless electronic signature is present EXAM Portable chest x-ray, 03/30/2017. HISTORY Ankle edema. Swelling to bilateral lower legs. Possible reaction to medication. Mild congestion. 24 hours duration. TECHNIQUE AP radiograph of the chest is presented. COMPARISON 03/28/[address] chest 03/22/2017. FINDINGS There is no acute bony abnormality. There is stable mild cardiac enlargement. The lungs are well inflated. There is chronic blunting of the right lateral costophrenic sulcus favored to reflect a combination of underlying basilar fibrotic change and prominent subpleural fat deposits at this location. No change from prior CT. Prior CT examination showed no pleural effusion. As noted, linear scarring or atelectatic change right lung base. Lungs otherwise clear. There is no evidence of pulmonary edema or pneumonia. No pneumothorax. Hiatal hernia again noted. Stable scoliosis. Dictated by... Amauri Sanchez M.D. THIS IS AN ELECTRONICALLY VERIFIED REPORT Amauri Sanchez M.D. at 04/01/2017 2:44 PM ARNOL/benny [facility] A Service of [facility] RADIOLOGY TEXT RESULTS PATIENT: ARSLAN DOMINGUEZ [facility] [id number] : [birth year] UNIT #: [id number] AGE: [address]: Myrtle Baumann MD SEX: F ORDER DR: TD: 03/31/2017 13:07 JOB #: [id number] MEDICAL IMAGING REPORT Page 1 of 1 COPY
--- NOTE | ~2017-03-30 | EKG ---
PATIENT: ARSLAN DOMINGUEZ UNIT #: [id number] Ventricular Rate: 76 BPM Atrial Rate: 76 BPM P-R Interval: 118 ms QRS Duration: 82 ms Q-T Interval: 382 ms QTC Calculation(Bezet): 429 ms P Padroni: 37 degrees Calculated R Padroni: 17 degrees Calculated T Padroni: 25 degrees Diagnosis Line: Normal sinus rhythm Diagnosis Line: Normal ECG Diagnosis Line: When compared with ECG of 28-MAR-2017 22:47, Diagnosis Line: No significant change was found Diagnosis Line: Confirmed by ANNIKA GONZALEZ MD ([id number]) on Diagnosis Line: 04/01/2017 8:55:57 AM INTERPRETING MD: CARLOS OVALLES
[2017-03-30 18:23] LABS: BASOPHIL% 0.1 % (0-2.5); DIFF IND NO; EOSINOPHIL% 0.3 % (0.0-7.0); HEMATOCRIT 33.8 % (35.0-45.0); LYMPHOCYTE# 1.7 X10e3 (1.0-3.5); LYMPHOCYTE% 11.7 % (17.0-45.0); MEAN CELL VOLUME 83.1 FL (83-96); MEAN CORPUSCULAR HEMOGLOBIN 27.1 PG (28-34); MEAN CORPUSCULAR HGB CONC 32.6 g/dL (30-36); MEAN PLATELET VOLUME 7.7 FL (6.5-11.5); MONOCYTE# 1.6 X10e3 (0-1.0); MONOCYTE% 11.4 % (3.0-12.0); NEUTROPHIL# 10.9 X10e3 (1.5-7.1); NEUTROPHIL% 76.5 % (40-75); PLATELET COUNT 344 X10e3 (140-420); RED BLOOD COUNT 4.07 X10e (3.90-5.30); RED CELL DISTRIBUTION WIDTH 17.8 % (11.0-15.5); WHITE BLOOD COUNT 14.2 X10e3 (4.0-10.5)
[2017-03-30 18:45] LABS: BUN/CREATININE RATIO 35.71; CALCIUM SERUM 9.1 mg/dL (8.4-10.2); CREATININE SERUM 0.7 mg/dL (0.6-1.4); GLOM FILT RATE Estimated 84.8 mL/min (>60); POTASSIUM 3.8 mmol/L (3.5-5.1)
== END 2017-03-30 19:20 | disposition home or self-care (01) ==
LOC: CED 17:21
PROVIDERS: Student in an Organized Health Care Education/Training Program
DX: R60.0 Localized edema (principal); I10 Essential (primary) hypertension; E78.5 Hyperlipidemia, unspecified; J44.9 Chronic obstructive pulmonary disease, unspecified; I48.91 Unspecified atrial fibrillation; Z88.0 Allergy status to penicillin; Z88.8 Allergy status to other drugs, medicaments and biological substances
CPT/HCPCS: 36415; 71010; 80048; 83880; 85025; 93005; 96374; 99284; J1940